=== PATIENT | male | born 1970 | race Caucasian/White ===

== ENCOUNTER 2017-10-23 01:59 | Emergency (ER) | payer SELFPAY ==
--- NOTE | 2017-10-23 02:20 | EDPHY ---
H & P Stated Complaint: TOO MUCH LSD, AND VODKA @1999 Time Seen by Provider: 10/23/17 02:20 HPI/ROS: HPI CHIEF COMPLAINT: I ingested too much LSD and alcohol. HISTORY OF PRESENT ILLNESS: Patient is a 47-year-old male, he presents emergency room through the front door by a cab, he states this evening around 830 he did LSD and felt that he was getting too high. Patient states around 830 this evening he ingested large amount of LSD and felt like he was getting too high. He also endorses that he drank vodka this evening. Decided come the emergency room as he states he felt too intoxicated and was scared. Upon arrival to the emergency room he has normal vital signs and is in no acute distress he does seem somewhat paranoid. However in the ER he is calm and cooperative he answers my questions appropriately. He does state that he lost his phone and is unable to return home. Had a long discussion with him. He has stable vital signs he is, cooperative answer my questions he does not appear acutely psychotic he does not want hurt himself or anybody else. We discussed possible cab to his private residence. He denies any focal medical complaints he denies chest pain or shortness of breath. Denies abdominal pain. Denies headache. Of note additionally the patient denies any other ingestion other than vodka this evening and LSD. He denies opiates or benzos. Denies other drugs or medications. His breath alcohol upon arrival is 0.067. Past Medical History: Denies any medical history Past Surgical History: Denies any surgical history Social History: Admits to LSD this evening, alcohol. Family History: Noncontributory ROS REVIEW OF SYSTEMS: A comprehensive 10 point review of systems is otherwise negative aside from elements mentioned in the history of present illness. Exam Constitutional somewhat anxious, triage nursing summary reviewed, vital signs reviewed, awake/alert. Vital signs stable. Eyes normal conjunctivae and sclera, EOMI, PERRLA. 6 mm and react to light equal. HENT normal inspection, atraumatic, moist mucus membranes, no epistaxis, neck supple/ no meningismus, no raccoon eyes. Respiratory clear to auscultation bilaterally, normal breath sounds, no respiratory distress, no wheezing. Cardiovascular rate normal, regular rhythm, no murmur, no edema, distal pulses normal. Gastrointestinal soft, non-tender, no rebound, no guarding, normal bowel sounds, no distension, no pulsatile mass. Genitourinary no CVA tenderness. Musculoskeletal no midline vertebral tenderness, full range of motion, no calf swelling, no tenderness of extremities, no meningismus, good pulses, neurovascularly intact. Skin pink, warm, & dry, no rash, skin atraumatic. Neurologic awake, alert and oriented x 3, AAOx3, moves all 4 extremities equally, motor intact, sensory intact, CN II-XII intact, normal cerebellar, normal vision, normal speech. Psychiatric normal mood/affect. Heme/Lymph/Immune no lymphadenopathy. Differential Diagnosis: Includes but is not limited to in a particular order acute alcohol ingestion, LSD ingestion, paranoia, anxiety, other drug ingestion Medical Decision Making: Plan for this patient will obtain breath alcohol, urine drug screen and monitor here. Monitor further intoxication or sedation. Clinically the patient appears well nontoxic no acute distress with stable vital signs and is acting appropriately. His breath alcohol level is low. I do feel comfortable allowing to be discharged however he does seem somewhat anxious. He denies wanting to hurt himself or anybody else. Re-evaluation: 0326: Patient is sleeping. Patient in no acute distress. I did re-evaluate he states he is feeling much better. He is not nearly as anxious and is resting comfortably. He is agreeable for discharge. I have answered all his questions. He has no current focal medical complaints or further concerns. I did discussed return precautions with him. He does understand return emergency room if he has any worsening symptoms questions or concerns. I do recommend refrain from doing LSD or drinking large amount of alcohol. Source: Patient - Personal History Current Tetanus Diphtheria and Acellular Pertussis (TDAP): Yes - Medical/Surgical History Hx Asthma: No Hx Chronic Respiratory Disease: No Hx Diabetes: No Hx Cardiac Disease: No Hx Renal Disease: No Hx Cirrhosis: No Hx Alcoholism: No Hx HIV/AIDS: No Hx Splenectomy or Spleen Trauma: No Other PMH: DENIES - Social History Smoking Status: Heavy smoker Constitutional: Initial Vital Signs Temperature (C) 36.8 C 10/23/17 02:03 Heart Rate 105 H 10/23/17 02:03 Respiratory Rate 16 10/23/17 02:03 Blood Pressure 124/77 H 10/23/17 02:03 O2 Sat (%) 93 10/23/17 02:03 O2 Delivery Mode Room Air Allergies/Adverse Reactions: No Known Allergies Allergy (Unverified 10/23/17 02:03) Home Medications: Medication Instructions Recorded NK [No Known Home Meds] 10/23/17 Medical Decision Making - Data Points Laboratory Results: 10/23/17 02:35 Urine Opiates Screen NEGATIVE (NEGATIVE) Urine Barbiturates NEGATIVE (NEGATIVE) Ur Phencyclidine Scrn NEGATIVE (NEGATIVE) Ur Amphetamine Screen NEGATIVE (NEGATIVE) U Benzodiazepines Scrn NEGATIVE (NEGATIVE) Urine Cocaine Screen NEGATIVE (NEGATIVE) U Marijuana (THC) Screen NEGATIVE (NEGATIVE) Departure - Departure Disposition: Home, Routine, Self-Care Clinical Impression: Alcohol use LSD overdose Qualifiers: Encounter type: initial encounter Injury intent: accidental or unintentional Qualified Code(s): T40.8X1A - Poisoning by lysergide [LSD], accidental ( unintentional), initial encounter Condition: Good Instructions: Polysubstance Abuse (ED), Alcohol Use Disorder (ED) Additional Instructions: 1. Return emergency room if you have any worsening symptoms questions or concerns. Referrals: NONE *PRIMARY CARE P,. [Primary Care Provider] - As per Instructions
[2017-10-23 03:34] VITALS: BP 116/73
== END 2017-10-23 03:34 | disposition home or self-care (01) ==
DX: T40.8X1A Poisoning by lysergide [LSD], accidental (unintentional), initial encounter (principal); F17.200 Nicotine dependence, unspecified, uncomplicated; Z72.89 Other problems related to lifestyle
CPT/HCPCS: 80305